=== PATIENT | male | born 1955 | race Two or more races ===

== ENCOUNTER 2019-12-08 15:46 | Emergency (ER) | payer SELFPAY ==
[~2019-12-08] VITALS: Ht 170.2 cm; Wt 86.2 kg
[~2019-12-08 15:46] MED LIST: KEFLEX500 MG ORAL; NYSTATIN15 GM TOPIC
[2019-12-08] MEDS ORDERED: METFORMIN HCL500 M1 ORAL (15:52)
--- NOTE | 2019-12-08 16:05 | Emergency Room Report ---
History of Present Illness General Chief Complaint: Dizziness Source: Patient Present Illness HPI Patient is a 64-year-old male who presents after increased dizziness and vertigo sensation. Worse with head movements. Denies recent trauma. Prior history of diabetes. Had no headache. Patient had no nausea or vomiting. Allergies: Coded Allergies: No Known Allergies (Unverified , 01/29/16) COVID-19 Screening Contact w/high risk pt: No Experienced COVID-19 symptoms?: No COVID-19 Testing performed ROOF PANEL HANGER: No Patient History Reviewed Nursing Documentation: PMH: Agreed; PSxH: Agreed Nursing Documentation-PMH Past Medical History: No History, Except For Hx Diabetes: Yes Review of Systems All Other Systems: negative except mentioned in HPI Physical Exam Vital Signs Date Time Temp Pulse Resp B/P (MAP) Pulse Ox O2 Delivery O2 Flow Rate FiO2 12/08/19 15:49 98.2 75 19 114/75 (88) 96 Room Air Sp02 EP Interpretation: reviewed, normal General Appearance: normal inspection, well appearing, no apparent distress, alert, GCS 15, non-toxic Head: atraumatic ENT: normal ENT inspection, hearing grossly normal, normal voice Neck: normal inspection, full range of motion, supple, no bony tend Respiratory: normal inspection, lungs clear, normal breath sounds, no respiratory distress, no retraction, no wheezing Cardiovascular #1: regular rate, rhythm, no edema Gastrointestinal: normal inspection, normal bowel sounds, non tender, soft, no guarding, no hernia Genitourinary: no CVA tenderness Musculoskeletal: normal inspection, back normal, normal range of motion Neurologic: alert, motor strength/tone normal, 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 Differential diagnosis include was not limited to lab otitis, CVA, hyponatremia among others. Because of complexity of patient's case laboratory tests and imaging studies were ordered. Laboratory testing was unremarkable. Patient given meclizine with improvement of symptoms. He was noted to be able to ambulate without assistance. CT of the head read by radiologist no evidence of acute pathology. Patient said he felt better and wanted to leave the hospital. The patient is advised to follow up with primary care doctor in 1-2 days. Patient is advised to return if any worsening condition or if any changes in status that are concerning. This report is dictated with [employer] global program director software which may occasionally lead to discrepancies related to use of this software. Labs Test 12/08/19 16:10 White Blood Count 3.6 K/UL (4.8-10.8) Red Blood Count 4.69 M/UL (4.70-6.10) Hemoglobin 13.3 G/DL (14.2-18.0) Hematocrit 39.7 % (42.0-52.0) Mean Corpuscular Volume 85 FL (80-99) Mean Corpuscular Hemoglobin 28.3 PG (27.0-31.0) Mean Corpuscular Hemoglobin Concent 33.5 G/DL (32.0-36.0) Red Cell Distribution Width 12.4 % (11.6-14.8) Platelet Count 250 K/UL (150-450) Mean Platelet Volume 7.3 FL (6.5-10.1) Neutrophils (%) (Auto) 45.4 % (45.0-75.0) Lymphocytes (%) (Auto) 40.2 % (20.0-45.0) Monocytes (%) (Auto) 11.3 % (1.0-10.0) Eosinophils (%) (Auto) 1.9 % (0.0-3.0) Basophils (%) (Auto) 1.2 % (0.0-2.0) Last Vital Signs Date Time Temp Pulse Resp B/P (MAP) Pulse Ox O2 Delivery O2 Flow Rate FiO2 12/08/19 15:49 98.2 75 19 114/75 (88) 96 Room Air Status: improved Disposition: HOME, SELF-CARE Condition: Stable Scripts Meclizine Hcl* (MECLIZINE*) 25 Mg Tablet 25 MG ORAL THREE TIMES A DAY, #30 TAB Prov: Ernesto Washburn MD 12/08/19 Ernesto Washburn MD Dec 08, 2019 16:05
[2019-12-08] MEDS ORDERED: Meclizine 25mg tab ORAL ONE (16:15)
[2019-12-08 16:22] VITALS: BP 115/70
--- NOTE | 2019-12-08 17:07 | Diagnostic Imaging Report ---
Indications: Blurred vision Technique: Spiral acquisitions obtained through the brain. Angled axial and coronal 5 x 5 mm slices were reconstructed. Total dose length product 933 mGycm. CTDI vol(s) 53 mGy. Dose reduction achieved using automated exposure control Comparison: None. Findings: There is a polypoid left frontal cutaneous lesion demonstrated. No acute intracranial hemorrhage or edema. No mass effect nor midline shift. Normal newman-white differentiation. Normal size ventricles and extra axial CSF spaces. Intact calvarium. There is minimal ethmoid sinus disease. The mastoids are clear. The visualized orbits are unremarkable. Impression: Negative for acute intracranial bleed or mass effect Polypoid exophytic left supraorbital cutaneous lesion. This should be clinically evident The CT scanner at [facility] is accredited by the [employer] and the scans are performed using protocols designed to limit radiation exposure to as low as reasonably achievable to attain images of sufficient resolution adequate for diagnostic evaluation.
[2019-12-08 17:09] LABS: BASOPHILS % (AUTO) 1.2 % (0.0-2.0); EOSINOPHILS % (AUTO) 1.9 % (0.0-3.0); HEMATOCRIT 39.7 % (42.0-52.0); HEMOGLOBIN 13.3 G/DL (14.2-18.0); LYMPHOCYTES % (AUTO) 40.2 % (20.0-45.0); MEAN CORPUSCULAR VOLUME 85 FL (80-99); MONOCYTES % (AUTO) 11.3 % (1.0-10.0); NEUTROPHILS % (AUTO) 45.4 % (45.0-75.0); PLATELET COUNT 250 K/UL (150-450); RED BLOOD COUNT 4.69 M/UL (4.70-6.10); RED CELL DISTRIBUTION WIDTH 12.4 % (11.6-14.8); WHITE BLOOD COUNT 3.6 K/UL (4.8-10.8)
[2019-12-08] MEDS ORDERED: MECLIZINE HCL25 MG ORAL (17:17)
[2019-12-08 17:29] VITALS: BP 125/71
== END 2019-12-08 17:29 | disposition home or self-care (01) ==
LOC: EMR 16:24
DX: R42 Dizziness and giddiness (principal); E11.9 Type 2 diabetes mellitus without complications
CPT/HCPCS: 36415; 70450; 85025; 93005; 99284